=== PATIENT | male | born 2000 | race Two or more races ===

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

== ENCOUNTER 2019-03-13 01:24 | Inpatient (IN) | payer MEDICAID, OTHER ==
[~2019-03-13] VITALS: Ht 167.6 cm; Wt 64.1 kg
--- NOTE | 2019-03-13 01:45 | NUR ---
FIRST CONTACT WITH PT. PT HERE WITH COMPLAINTS L FLANK PAIN AND N/V, STATES VOMITED 10 TIMES. PT'S AOX4. RESPS EVEN AND UNLABORED.
[2019-03-13] MEDS ORDERED: KETOROLAC 30 MG/1 ML ONE (01:48)
[2019-03-13] MEDS ORDERED: ONDANSETRON 2MG/ML, 2ML ONE ×2 (01:48→03:16)
[2019-03-13 01:56] LABS: BASOPHILS # (AUTO) 0.01 x10^3/uL (0-0.3); BASOPHILS % (AUTO) 0 % (0-1); EOSINOPHILS % (AUTO) 0 % (1-7); LYMPHOCYTES # (AUTO) 0.69 x10^3/uL (1-6.1); LYMPHOCYTES % (AUTO) 4 % (22-44); MD NO; MEAN CORPUSCULAR HEMOGLOBIN 30.8 pg (27.5-34.5); MEAN CORPUSCULAR HGB CONC 33.1 g/dL (33.2-36.2); MEAN PLATELET VOLUME 9.5 fL (7.4-10.4); MONOCYTES # (AUTO) 0.37 x10^3/uL (0-1.4); MONOCYTES % (AUTO) 2 % (2-9); NEUTROPHILS # (AUTO) 15.14 x10^3/uL (1.8-8.0); NEUTROPHILS % (AUTO) 93 % (42-75); PLATELET COUNT 217 x10^3/uL (130-400); RED BLOOD COUNT 5.33 x10^6/uL (4.38-5.82); RED CELL DISTRIBUTION WIDTH 13.3 % (9.4-14.8)
--- NOTE | 2019-03-13 01:59 | NUR ---
PT IN US NOW.
[2019-03-13] MEDS ORDERED: ONDANSETRON 2MG/ML, 2ML IVPush ONE ×2 (02:00→03:30)
[2019-03-13] MEDS ORDERED: KETOROLAC 30 MG/1 ML IVPush ONE (02:00)
[2019-03-13 02:08] LABS: ALANINE AMINOTRANSFERASE 14 U/L (12-78); ALBUMIN 4.7 g/dL (3.4-5.0); ANION GAP 8 mmol/L (5-15); CALCIUM 9.4 mg/dL (8.5-10.1); CHLORIDE 109 mmol/L (98-107); CREATININE 1.08 mg/dL (0.7-1.3)
[2019-03-13 02:11] LABS: ALKALINE PHOSPHATASE 53 U/L (45-117); BILIRUBIN,TOTAL 0.4 mg/dL (0.2-1.0)
--- NOTE | 2019-03-13 02:14 | NUR ---
PT BACK TO ROOM FROM US.
--- NOTE | 2019-03-13 02:24 | NUR ---
PT AMB TO BR AND BACK TO ROOM WITH STEADY GAIT. UA SENT.
[2019-03-13 02:32] LABS: MICROSCOPIC NOT IND
[2019-03-13 02:53] LABS: CULTURE INDICATED? NO
--- NOTE | 2019-03-13 02:53 | NUR ---
PT REQUESTING PAIN MED AT THIS TIME. EDMD NOTIFIED.
[2019-03-13] MEDS ORDERED: MORPHINE SULFATE 4 MG/ML, 1ML ONE (03:16)
--- NOTE | 2019-03-13 03:22 | NUR ---
PT MEDICATED PER EMAR. PT TOLERATED WELL. NS INFUSING AT THIS TIME.
[2019-03-13] MEDS ORDERED: MORPHINE SULFATE 4 MG/ML, 1ML IVPush PRN (03:30)
[2019-03-13] MEDS ORDERED: SODIUM CHLORIDE 0.9% 1,000ML IVBOLUS ONE (03:30)
--- NOTE | 2019-03-13 03:41 | NUR ---
REPORT GIVEN TO BIANKA FRAUSTO. ALL QUESTIONS ANSWERED.
[2019-03-13 03:56] VITALS: BP 113/73
[2019-03-13] MEDS ORDERED: DOCUSATE 100 MG CAPSULE PO PRN (06:00)
[2019-03-13] MEDS ORDERED: BISACODYL 10 MG SUPP PR PRN (06:00)
[2019-03-13] MEDS ORDERED: ONDANSETRON ODT 4 MG PO PRN (06:00)
[2019-03-13] MEDS ORDERED: PROMETHAZINE 25 MG/ML, 1ML IM PRN (06:00)
[2019-03-13] MEDS ORDERED: POLYETHYLENE GLYCOL 17 GM PACKET PO PRN (06:00)
[2019-03-13] MEDS ORDERED: ACETAMINOPHEN 325 MG TABLET PO PRN (06:00)
[2019-03-13] MEDS: SODIUM CHLORIDE 0.9% 1,000 ML IV SCH ×3 (06:11→21:41)
[2019-03-13] MEDS: OXYcodone IR 5MG TABLET PO PRN ×3 (06:22→15:16)
[2019-03-13 07:00] LABS: FREE T4 (FREE THYROXINE) 1.21 ng/dL (0.76-1.46); THYROID STIMULATING HORMONE 0.288 mIU/L (0.358-3.740)
[2019-03-13 07:10] LABS: HEMOGLOBIN A1C 5.3 % (4.2-6.3)
[2019-03-13 08:20] VITALS: BP 133/78
[2019-03-13] MEDS: morphine SULFATE 10 MG/ML, 1ML IVPush PRN ×4 (08:55→23:50)
[2019-03-13] MEDS: ONDANSETRON 2MG/ML, 2ML IVPush PRN ×2 (13:03→19:03)
[2019-03-13 13:08] VITALS: BP 133/70
[2019-03-13] MEDS ORDERED: POLYETHYLENE GLYCOL 17 GM PACKET PO SCH (20:00)
[2019-03-13] MEDS: POLYETHYLENE GLYCOL 17 GM PACKET PO SCH (20:32)
[2019-03-13 21:17] LABS: AMPHETAMINE SCREEN, URINE Negative (Negative); BARBITURATE SCREEN, URINE Negative (Negative); BENZODIAZEPINE SCREEN, URINE Negative (Negative); CANNABINOID SCREEN, URINE Positive (Negative); COCAINE SCREEN, URINE Positive (Negative); METHADONE SCREEN, URINE Negative (Negative); OPIATE SCREEN, URINE Positive (Negative)
[2019-03-13 21:45] VITALS: BP 120/68
[2019-03-14 02:00] VITALS: BP 105/56
[2019-03-14] MEDS: SODIUM CHLORIDE 0.9% 1,000 ML IV SCH ×3 (04:32→18:19)
[2019-03-14] MEDS: morphine SULFATE 10 MG/ML, 1ML IVPush PRN ×6 (05:57→21:33)
[2019-03-14 05:58] LABS: ALANINE AMINOTRANSFERASE 11 U/L (12-78); ALBUMIN 3.4 g/dL (3.4-5.0); ANION GAP 5 mmol/L (5-15); CALCIUM 8.6 mg/dL (8.5-10.1); CHLORIDE 111 mmol/L (98-107)
[2019-03-14 06:00] LABS: ALKALINE PHOSPHATASE 47 U/L (45-117); CHOL/HDL RATIO 1.8; CHOLESTEROL, TOTAL 116 mg/dL (140-239); HDL CHOL % 54 % (26-37); HDL CHOLESTEROL (DIRECT) 63 mg/dL (40-60); LDL CHOLESTEROL,CALCULATED 42 mg/dL (54-169); LDL/HDL RATIO 0.7 (0.5-3.0); TOTAL PROTEIN 6.4 g/dL (6.4-8.2); TRIGLYCERIDES 56 mg/dL (50-200); VLDL CHOLESTEROL 11 mg/dL (0-25)
[2019-03-14 07:11] VITALS: BP 115/65
[2019-03-14] MEDS: POLYETHYLENE GLYCOL 17 GM PACKET PO SCH ×3 (08:57→21:33)
[2019-03-14] MEDS: ONDANSETRON 2MG/ML, 2ML IVPush PRN (12:32)
[2019-03-14 14:40] VITALS: BP 118/71
[2019-03-14 15:57] LABS: ALANINE AMINOTRANSFERASE 11 U/L (12-78); ALBUMIN 3.5 g/dL (3.4-5.0); ANION GAP 7 mmol/L (5-15); CALCIUM 8.8 mg/dL (8.5-10.1); CHLORIDE 106 mmol/L (98-107); CREATININE 0.79 mg/dL (0.7-1.3)
[2019-03-14 15:59] LABS: ALKALINE PHOSPHATASE 40 U/L (45-117); BILIRUBIN,TOTAL 1.2 mg/dL (0.2-1.0); TOTAL PROTEIN 6.9 g/dL (6.4-8.2)
[2019-03-14 20:17] VITALS: BP 113/64
[2019-03-15] MEDS: morphine SULFATE 10 MG/ML, 1ML IVPush PRN ×4 (00:37→10:59)
[2019-03-15] MEDS: SODIUM CHLORIDE 0.9% 1,000 ML IV SCH ×2 (00:38→07:50)
[2019-03-15 02:34] VITALS: BP 123/72
[2019-03-15 05:50] LABS: MEAN CORPUSCULAR HEMOGLOBIN 30.4 pg (27.5-34.5); MEAN CORPUSCULAR HGB CONC 33.3 g/dL (33.2-36.2); MEAN CORPUSCULAR VOLUME 91.4 fL (81-97); MEAN PLATELET VOLUME 9.2 fL (7.4-10.4); PLATELET COUNT 149 x10^3/uL (130-400); RED BLOOD COUNT 4.32 x10^6/uL (4.38-5.82); RED CELL DISTRIBUTION WIDTH 12.7 % (9.4-14.8)
[2019-03-15 06:25] LABS: BASOPHILS # (AUTO) 0.12 x10^3/uL (0-0.3); BASOPHILS % (AUTO) 1 % (0-1); EOSINOPHILS # (AUTO) 0.01 x10^3/uL (0-0.8); EOSINOPHILS % (AUTO) 0 % (1-7); LYMPHOCYTES # (AUTO) 1.23 x10^3/uL (1-6.1); LYMPHOCYTES % (AUTO) 11 % (22-44); MD SCAN; MONOCYTES # (AUTO) 0.93 x10^3/uL (0-1.4); MONOCYTES % (AUTO) 8 % (2-9); NEUTROPHILS # (AUTO) 9.21 x10^3/uL (1.8-8.0); NEUTROPHILS % (AUTO) 80 % (42-75)
[2019-03-15] MEDS: POLYETHYLENE GLYCOL 17 GM PACKET PO SCH ×3 (07:16→20:01)
[2019-03-15 08:01] VITALS: BP 108/64
[2019-03-15] MEDS: ONDANSETRON 2MG/ML, 2ML IVPush PRN (10:59)
[2019-03-15 14:07] VITALS: BP 115/71
[2019-03-15] MEDS: OXYcodone IR 5MG TABLET PO PRN ×2 (14:24→18:36)
[2019-03-15 18:36] VITALS: BP 124/75
[2019-03-16 01:04] VITALS: BP 115/69
[2019-03-16] MEDS: OXYcodone IR 5MG TABLET PO PRN ×2 (05:28→10:04)
[2019-03-16 07:51] VITALS: BP 114/67
[2019-03-16] MEDS: POLYETHYLENE GLYCOL 17 GM PACKET PO SCH ×2 (09:26→09:27)
[2019-03-16 12:15] VITALS: BP 110/64
== END 2019-03-16 13:15 | disposition home or self-care (01) | DRG 440 ==
LOC: ED 02:00 → EDIP 03:04 → 4NOR 03:48 → DCLOUNGE 03-16 13:07
PROVIDERS: ADMIT Internal Medicine; ATTEND Internal Medicine
DX: K85.21 Alcohol induced acute pancreatitis with uninfected necrosis (principal); E86.0 Dehydration; F10.10 Alcohol abuse, uncomplicated; K59.00 Constipation, unspecified; R13.10 Dysphagia, unspecified; Z71.6 Tobacco abuse counseling
CPT/HCPCS: 36415; 74177; 76700; 80053; 80061; 80307; 81003; 83036; 83690; 83735; 84100; 84439; 84443; 85025; G0378; J1885; J2405; Q0162; J2270; J7030

== ENCOUNTER 2019-09-08 07:46 | Emergency (ER) | payer MEDICAID ==
[~2019-09-08] VITALS: Ht 167.6 cm; Wt 61.7 kg
--- NOTE | 2019-09-08 08:41 | NUR ---
Pt ambulated independently to ED room 35 from helene in NAD
--- NOTE | 2019-09-08 08:54 | NUR ---
report from satish
[2019-09-08 08:55] VITALS: BP 109/63
[2019-09-08 09:42] LABS: RAPID INFLUENZA A Negative (Negative); RAPID INFLUENZA B Negative (Negative)
--- NOTE | 2019-09-08 10:02 | NUR ---
Patient/Caregiver given discharge instructions and they have confirmed that they understand the instructions. Patient ambulatory with steady gait.
== END 2019-09-08 10:04 | disposition home or self-care (01) ==
LOC: ED 09:53
DX: J06.9 Acute upper respiratory infection, unspecified (principal)
CPT/HCPCS: 71046; 87081; 87147; 87400; 87880; 99284

== ENCOUNTER 2020-05-07 15:53 | Emergency (ER) | payer MEDICAID ==
[~2020-05-07] VITALS: Ht 167.6 cm; Wt 57.0 kg
[2020-05-07 16:11] VITALS: BP 111/70
--- NOTE | 2020-05-07 16:49 | NUR ---
TOOL MECHANIC: PT AMBULATORY WITH STEADY GAIT TO ROOM AT THIS TIME.
--- NOTE | 2020-05-07 17:04 | NUR ---
PT CAME IN CO OF NAUSEA X 2 DAYS. BUT SAYS THAT IT HAS BEEN COMING AND GOING FOR MONTHS NOW. PT HAS NO OTHER COMPLAINTS AT THIS TIME.
[2020-05-07 17:22] LABS: BASOPHILS # (AUTO) 0.03 x10^3/uL (0-0.1); BASOPHILS % (AUTO) 1 % (0-1); EOSINOPHILS # (AUTO) 0.08 x10^3/uL (0-0.4); EOSINOPHILS % (AUTO) 1 % (1-7); LYMPHOCYTES # (AUTO) 2.66 x10^3/uL (1-3.4); LYMPHOCYTES % (AUTO) 41 % (22-44); MD NO; MEAN CORPUSCULAR HEMOGLOBIN 30.4 pg (27.5-34.5); MEAN CORPUSCULAR HGB CONC 32.8 g/dL (33.2-36.2); MEAN CORPUSCULAR VOLUME 92.7 fL (81-97); MEAN PLATELET VOLUME 8.8 fL (7.4-10.4); MONOCYTES # (AUTO) 0.42 x10^3/uL (0.2-0.8); MONOCYTES % (AUTO) 7 % (2-9); NEUTROPHILS # (AUTO) 3.27 x10^3/uL (1.8-6.8); NEUTROPHILS % (AUTO) 51 % (42-75); PLATELET COUNT 252 x10^3/uL (130-400); RED BLOOD COUNT 5.18 x10^6/uL (4.38-5.82); RED CELL DISTRIBUTION WIDTH 13.5 % (9.4-14.8)
[2020-05-07] MEDS ORDERED: ONDANSETRON ODT 4 MG PO ONE (17:30)
[2020-05-07 17:34] LABS: ALANINE AMINOTRANSFERASE 19 U/L (12-78); ALBUMIN 4.7 g/dL (3.4-5.0); ANION GAP 4 mmol/L (5-15); CALCIUM 9.4 mg/dL (8.5-10.1); CHLORIDE 105 mmol/L (98-107); CREATININE 1.04 mg/dL (0.7-1.3)
[2020-05-07 17:37] LABS: ALKALINE PHOSPHATASE 55 U/L (45-117); BILIRUBIN,TOTAL 0.6 mg/dL (0.2-1.0); TOTAL PROTEIN 7.7 g/dL (6.4-8.2)
[2020-05-07] MEDS ORDERED: ONDANSETRON ODT 4 MG ONE (18:16)
== END 2020-05-07 18:22 | disposition home or self-care (01) ==
LOC: ED 18:10
DX: R11.2 Nausea with vomiting, unspecified (principal)
CPT/HCPCS: 36415; 80053; 83690; 85025; 99283; Q0162

== ENCOUNTER 2020-10-17 08:58 | Emergency (ER) | payer MEDICAID, OTHER ==
[~2020-10-17] VITALS: Ht 177.8 cm; Wt 58.4 kg
--- NOTE | 2020-10-17 09:29 | NUR ---
PT AMBULATORY TO ROOM 10 W/ C/O SYNCOPE "FOR A FEW SECONDS" AFTER PT HAD ROUGHLY 30 LBS BOX FALL ON NECK W/ IMMEDIATE SYNCOPE. PT STATES HE IS ALSO HAVING NAUSEA BUT THAT IT IS CHRONIC X 1 YR AND IS BEING FOLLOWED BY GI. PT STATES HE IS A HEAVY MARIJUANA SMOKER. PT EDUCATED BY THIS RN AND DOMINGO ELLINGTON ABOUT MARIJUANA AND STUDIES ON CHRONIC NAUSEA AND ABD PAIN AND IMPORTANCE OF STOPPING MARIJUANA USE. PT VERBALIZES UNDERSTANDING. PT AOX4 IN ROOM. NADN. MONITORS APPLIED. PIV INITIATED. WARM BLANKET PROVIDED. PT RESTING LISSETH VISHALNEY.
[2020-10-17] MEDS ORDERED: ONDANSETRON 2MG/ML, 2ML ONE (09:32)
[2020-10-17 09:43] LABS: BASOPHILS % (AUTO) 1 % (0-1); EOSINOPHILS % (AUTO) 0 % (1-7); LYMPHOCYTES % (AUTO) 20 % (22-44); MEAN CORPUSCULAR HGB CONC 33.3 g/dL (33.2-36.2); MEAN PLATELET VOLUME 8.8 fL (7.4-10.4); MONOCYTES % (AUTO) 6 % (2-9); NEUTROPHILS % (AUTO) 73 % (42-75); PLATELET COUNT 243 x10^3/uL (130-400); RED BLOOD COUNT 4.78 x10^6/uL (4.38-5.82); RED CELL DISTRIBUTION WIDTH 13.2 % (9.4-14.8)
--- NOTE | 2020-10-17 09:52 | NUR ---
PT RESTING ON GURNEY. NADN. BROCK.
[2020-10-17 09:53] LABS: ALANINE AMINOTRANSFERASE 30 U/L (12-78); ALBUMIN 4.1 g/dL (3.4-5.0); ANION GAP 8 mmol/L (5-15); CALCIUM 9.1 mg/dL (8.5-10.1); CHLORIDE 109 mmol/L (98-107); CREATININE 0.98 mg/dL (0.7-1.3)
[2020-10-17] MEDS ORDERED: KETOROLAC 30 MG/1 ML ONE (09:53)
[2020-10-17 09:55] LABS: ALKALINE PHOSPHATASE 46 U/L (45-117); BILIRUBIN,TOTAL 0.7 mg/dL (0.2-1.0); TOTAL PROTEIN 6.7 g/dL (6.4-8.2)
[2020-10-17] MEDS ORDERED: KETOROLAC 30 MG/1 ML IVPush ONE (10:00)
[2020-10-17] MEDS ORDERED: SODIUM CHLORIDE 0.9% 1,000ML IVBOLUS ONE (10:00)
[2020-10-17] MEDS ORDERED: ONDANSETRON 2MG/ML, 2ML IVPush ONE (10:00)
[2020-10-17 10:14] LABS: MD SCAN
--- NOTE | 2020-10-17 10:19 | NUR ---
PT CHART REVIEWED AND PLACED FOR RECHECK.
[2020-10-17 10:21] VITALS: BP 131/78
== END 2020-10-17 10:48 | disposition home or self-care (01) ==
LOC: ED 09:55
DX: M54.2 Cervicalgia (principal); R55 Syncope and collapse; M54.6 Pain in thoracic spine; Z87.19 Personal history of other diseases of the digestive system
CPT/HCPCS: 36415; 72125; 72128; 80053; 85025; 93005; 96361; 96374; 96375; 99285; J1885; J2405; J7030

== ENCOUNTER 2020-10-27 01:05 | Emergency (ER) | payer MEDICAID, OTHER ==
[~2020-10-27] VITALS: Ht 177.8 cm; Wt 60.9 kg
--- NOTE | 2020-10-27 01:42 | NUR ---
pt giving urine sample, all belongings secured, sitter at bedside
--- NOTE | 2020-10-27 01:59 | NUR ---
Garage doors down, al belongings x2 bags unsearched labelled and placed in storage locker. Urine collected and sent. Labs drawn and sent. Pt oriented to hold process. He is calm and cooperative. States he has all over body pain from withdrawing asking for pain medications. Informed pt unable to provide any at this time, will wait for labs to come back and non pharm for body aches. Sitter at bedside. Will continue to monitor.
[2020-10-27 02:37] LABS: BASOPHILS % (AUTO) 0 % (0-1); EOSINOPHILS % (AUTO) 1 % (1-7); LYMPHOCYTES % (AUTO) 32 % (22-44); MEAN CORPUSCULAR HEMOGLOBIN 31.2 pg (27.5-34.5); MEAN CORPUSCULAR HGB CONC 33.7 g/dL (33.2-36.2); MEAN PLATELET VOLUME 9.7 fL (7.4-10.4); MONOCYTES % (AUTO) 7 % (2-9); NEUTROPHILS % (AUTO) 60 % (42-75); PLATELET COUNT 182 x10^3/uL (130-400); RED BLOOD COUNT 4.43 x10^6/uL (4.38-5.82); RED CELL DISTRIBUTION WIDTH 13.4 % (9.4-14.8)
[2020-10-27 02:42] LABS: MD NO
[2020-10-27 02:46] LABS: ALBUMIN 3.3 g/dL (3.4-5.0); ANION GAP 6 mmol/L (5-15); CALCIUM 8.2 mg/dL (8.5-10.1); CHLORIDE 114 mmol/L (98-107)
[2020-10-27 02:49] LABS: CREATININE 0.87 mg/dL (0.7-1.3)
[2020-10-27 02:50] LABS: ALANINE AMINOTRANSFERASE 20 U/L (12-78); ALKALINE PHOSPHATASE 41 U/L (45-117); BILIRUBIN,TOTAL 0.4 mg/dL (0.2-1.0); TOTAL PROTEIN 5.6 g/dL (6.4-8.2)
[2020-10-27 02:54] LABS: SALICYLATE LEVEL < 1.7 mg/dL (2.8-20.0)
[2020-10-27 02:56] LABS: AMPHETAMINE SCREEN, URINE Negative (Negative); BARBITURATE SCREEN, URINE Negative (Negative); BENZODIAZEPINE SCREEN, URINE Positive (Negative); CANNABINOID SCREEN, URINE Positive (Negative); COCAINE SCREEN, URINE Negative (Negative); METHADONE SCREEN, URINE Negative (Negative); OPIATE SCREEN, URINE Positive (Negative)
--- NOTE | 2020-10-27 03:08 | NUR ---
PT SLEEPING IN GURNEY, SITTER AT BEDSIDE, SAFETY MEASURES IN PLACE. PT ON HOLD
--- NOTE | 2020-10-27 04:44 | NUR ---
pt ambulated to phone to make call to friend to let them know they are in the hospital, pt placed on hospital bed and in line of sight of sitter
[2020-10-27] MEDS ORDERED: ACETAMINOPHEN 325 MG TABLET PO ONE (05:00)
[2020-10-27] MEDS ORDERED: ACETAMINOPHEN 325 MG TABLET ONE (05:00)
--- NOTE | 2020-10-27 05:05 | NUR ---
Pt requesting medication for w/d and leg cramping and body aches. Rcd order for tylenol 650mg, pt refused. Pt also requested confirmation that his cell phone is in his personal belongings; verified cell phone is in belongings. However, told pt he is not allowed to have any of his belongings at this time.
[2020-10-27 06:15] VITALS: BP 95/61
--- NOTE | 2020-10-27 06:15 | NUR ---
pt sleeping in bed, resp even/unlabored, no needs at this time, in line of sight of sitter
--- NOTE | 2020-10-27 06:53 | NUR ---
report given to jhon partida
--- NOTE | 2020-10-27 07:05 | NUR ---
received report from eldon ferreira. patient sleeping in hospital bed. respirations even and unlabored. sitter outside door within view. ordered breakfast tray. will complete si reassessment with breakfast.
--- NOTE | 2020-10-27 10:12 | NUR ---
COVID SWAB OBTAINED AND WALKED TO LAB
--- NOTE | 2020-10-27 10:16 | NUR ---
pt resting comfortably in hospital bed in safe room with sitter outside door. breakfast meal tray provided and patient walked to phone for phone call. he is calm and cooperative and has no further needs at this time.
--- NOTE | 2020-10-27 11:28 | NUR ---
pt sleeping in hospital bed in safe room with sitter outside door. respirations even and unlabored. lunch tray ordered. no other needs at this time.
--- NOTE | 2020-10-27 11:36 | NUR ---
MOBILE TOE LASTER AT BEDSIDE TO ASSESS PT
--- NOTE | 2020-10-27 12:08 | NUR ---
lunch tray provided. pt resting comfortably in hospital bed in a safe room with sitter outside door. no additional needs at this time.
--- NOTE | 2020-10-27 12:51 | NUR ---
AFTER MHE AND HOLD RELEASED, PT GIVEN BELONGINGS AND DISCHARGE PAPERS WITH INSRUCTIONS TO FOLLOW UP WITH [facility] AT THE APPOINTED TIME AND TO STAY WITH A RESPONSIBLE ADULT UNTIL THEN FOR HIS SAFETY. PT AMBULATED TO DISCHARGE WINDOW STEADY GAIT
== END 2020-10-27 12:54 | disposition home or self-care (01) ==
LOC: ED 02:13
DX: T14.91XA Suicide attempt, initial encounter (principal); F32.9 Major depressive disorder, single episode, unspecified; Z20.822 Contact with and (suspected) exposure to COVID-19; F11.20 Opioid dependence, uncomplicated; F43.0 Acute stress reaction; Z72.9 Problem related to lifestyle, unspecified; X83.8XXA Intentional self-harm by other specified means, initial encounter; Y93.89 Activity, other specified; Y92.89 Other specified places as the place of occurrence of the external cause; Y99.8 Other external cause status
CPT/HCPCS: 36415; 80053; 80299; 80307; 80320; 80329; 85025; 87426; 99284; G0480